=== PATIENT | female | born 1980 | race Asian ===

== ENCOUNTER 2019-11-03 02:15 | Emergency (ER) | payer OTHER ==
[2019-11-03 03:06] VITALS: TEMP 97.9; BMI 23.4
[2019-11-03] MEDS ORDERED: SODIUM CHLORIDE 0.9% 500 ML INFUS.BAG IV ONE ×2 (03:28→05:22)
[2019-11-03 04:45] LABS: ALBUMIN 3.6 g/dl (3.4-5.0); BILIRUBIN,TOTAL 0.4 mg/dL (0.2-1); BLOOD UREA NITROGEN 10.6 mg/dL (7-18); CALCIUM 8.9 mg/dL (8.5-10.1); CREATININE 0.7 mg/dL (0.55-1.3); MAGNESIUM 2.1 mg/dL (1.8-2.4); POTASSIUM 4.4 mmol/L (3.5-5.1); TOT PROT 7.1 g/dl (6.4-8.2)
--- NOTE | 2019-11-03 04:53 | PDOC ---
History of Present Illness - General Chief Complaint: Palpitations Stated Complaint: PALPITATIONS Time Seen by Provider: 11/03/19 03:03 History Source: Patient, Family Exam Limitations: No Limitations - History of Present Illness Initial Comments: 11/03/19 04:47 [id number] without PMH who p/w one day of sensation of rapid palpitations unlike symptoms she has ever had before. Her family is present to assist translating and provide her history. They note that at about 1:45 am today, she began screaming and saying that she felt like she was going to because of the palpitations. Family note that when they tried to help console her, she seemed to become less responsive for a short period of time but never lost consciousness. They otherwise deny any f/c/n/v/d/c, change in appetite, cough, congestion, CP, AP, back pain, neck pain, change in baseline stress level, or any other new symptoms. Past History - Past Medical History Allergies/Adverse Reactions: Allergies Allergy/AdvReac Type Severity Reaction Status Date / Time No Known Allergies Allergy Verified 11/03/19 04:29 Home Medications: Ambulatory Orders Cephalexin [Keflex] 500 mg PO BID #13 capsule 11/03/19 COPD: No Other medical history: Pt denies - Psycho Social/Smoking Cessation Hx Smoking History: Never smoked Have you smoked in the past 12 months: No Information on smoking cessation initiated: No Hx Alcohol Use: No Drug/Substance Use Hx: No Review of Systems - Review of Systems Able to Perform ROS?: Yes Comments:: 11/03/19 04:53 GEN: no fever, chills, malaise, or generalized weakness HEENT: no ear pain, congestion, sore throat, vision change, or eye pain CV: palpitations, no chest pain, lightheadedness, syncope, or edema RESP: no SOB, wheezing, or cough GI: no abdominal pain, nausea, vomiting, diarrhea, constipation, or rectal bleed : no dysuria, hematuria, or discharge MSK: no muscle weakness or pain, no joint swelling or pain NEURO: no headache, vertigo, numbness, tingling, or focal weakness PSYCH: no SI, HI, or behavior change SKIN: no jaundice, rash, lesions, or unexplained bruises ROS otherwise negative except as noted in HPI *Physical Exam - Vital Signs Last Vital Signs Temp Pulse Resp BP Pulse Ox 97.9 F 89 16 107/75 97 11/03/19 02:40 11/03/19 06:07 11/03/19 06:07 11/03/19 06:07 11/03/19 06:07 - Physical Exam 11/03/19 04:54 GENERAL: a bit dehydrated appearing, but A/Ox4, no distress, answers questions appropriately, accompanied by and son who appear supportive HEENT: PERRLA, EOMI, moist mucous membranes NECK/BACK: no midline ttp, no spinal stepoff or deformity, no hematoma, full ROM , neck supple CARDIOVASCULAR: regular rate/rhythm, no MGR, strong peripheral pulses, capillary refill <2 seconds, extremities wwp, no edema LUNGS/RESPIRATORY: no respiratory distress, CTAB GI/ABDOMEN: symmetric [id number], normoactive BS, soft, no ttp, no midline pulsatile masses : no CVA tenderness EXTREMITIES: no muscle atrophy, no acute deformity SKIN: warm and dry, a bit pale, no jaundice, no rash, no bruising, no skin breakdown, no cuts, no lesions NEUROLOGICAL: GCS 15, CN II-XII grossly intact, 5/5 strength proximally and distally, no facial droop Heart Score/ECG Review #1 11/03/19 02:44 Sinus rhythm, rate 100, normal axis and intervals, TWF III, no other ST-T changes ED Treatment Course - LABORATORY CBC & Chemistry Diagram: 11/03/19 04:41 11/03/19 03:51 - ADDITIONAL ORDERS Additional order review: 11/03/19 11/03/19 11/03/19 04:41 03:56 03:51 RBC 3.95 Cancelled MCV 89.6 Cancelled MCHC 33.7 Cancelled RDW 12.4 Cancelled MPV 9.1 Cancelled Neutrophils % 59.7 Cancelled Lymphocytes % 30.1 Cancelled Monocytes % 7.8 Cancelled Eosinophils % 1.5 Cancelled Basophils % 0.9 Cancelled POC Glucometer 102 - RADIOLOGY Radiology Studies Ordered: Category Date Time Status CHEST X-RAY PORTABLE* [RAD] Stat Radiology 11/03/19 03:27 Completed - Medications Given in the ED: ED Medications Discontinued Medications Generic Name Dose Route Start Last Admin Trade Name Freq PRN Reason Stop Dose Admin Cephalexin HCl 500 mg 11/03/19 06:33 11/03/19 06:41 Keflex - PO 11/03/19 06:34 500 mg ONCE ONE Administration Sodium Chloride 1,000 ml 11/03/19 03:28 11/03/19 03:54 Normal Saline - IV 11/03/19 03:29 1,000 ml ONCE ONE Administration Sodium Chloride 1,000 ml 11/03/19 05:22 11/03/19 05:25 Normal Saline - IV 11/03/19 05:23 1,000 ml ONCE ONE Administration Medical Decision Making - Medical Decision Making 11/03/19 19:12 Adult female Pt p/w sensation of palpitations. Initial Vital Signs Temp Pulse Resp BP Pulse Ox 97.9 F 101 H 20 119/67 97 11/03/19 02:40 11/03/19 02:40 11/03/19 02:40 11/03/19 02:40 11/03/19 02:40 Exam: As noted in Physical Exam section. DDX IBNLT: tachyarrhythmia (e.g. SVT, re-entrant tachycardia, WPW, Brugada, long QT, AF/AFL w/ RVR, MAT, ventricular dysrhythmia), ischemia (ACS), structural heart condition (MVP, mitral stenosis, atrial enlargement, HOCM), anxiety/panic, hypoxia, anemia (e.g. hemorrhage from heavy menstruation, ruptured ectopic, etc), PE, PTX, bronchitis/PNA, sepsis/shock, tamponade, metabolic (e.g. DKA, hypoglycemia), thyroid condition, catecholamine surge ( e.g. pheochromocytoma), anxiety/panic disorder, medication effect, substance use , etc. W/U ordered: Labs EKG CXR Monitor TX ordered: IVF EKG: Reviewed; results as noted in ECG Review section. CXR: Nothing acute Laboratory Tests 11/03/19 11/03/19 11/03/19 03:51 03:51 03:51 WBC Cancelled Corrected WBC (auto) Cancelled RBC Cancelled Hgb Cancelled Hct Cancelled MCV Cancelled MCH Cancelled MCHC Cancelled RDW Cancelled Plt Count Cancelled MPV Cancelled Absolute Neuts (auto) Cancelled Absolute Lymphs (auto) Cancelled Absolute Monos (auto) Cancelled Absolute Eos (auto) Cancelled Absolute Basos (auto) Cancelled Add Manual Diff Cancelled Neutrophils % Cancelled Lymphocytes % Cancelled Monocytes % Cancelled Eosinophils % Cancelled Basophils % Cancelled Nucleated RBC % Cancelled Platelet Estimate Cancelled Platelet Comment Cancelled Normal RBC Morphology Cancelled Sodium 140 Potassium 4.4 Chloride 108 H Carbon Dioxide 23 Anion Gap 9 BUN 10.6 Creatinine 0.7 Est GFR (CKD-EPI)AfAm 128.28 Est GFR (CKD-EPI)NonAf 110.69 POC Glucometer Random Glucose 103 Calcium 8.9 Magnesium 2.1 Total Bilirubin 0.4 AST 31 ALT 27 Alkaline Phosphatase 73 Creatine Kinase 142 Troponin I < 0.02 Total Protein 7.1 Albumin 3.6 Urine Color Urine Appearance Urine pH Ur Specific [place] Urine Protein Urine Glucose (UA) Urine Ketones Urine Blood Urine Nitrite Urine Bilirubin Urine Urobilinogen Ur Leukocyte Esterase Urine WBC (Auto) Urine RBC (Auto) Urine Casts (Auto) U Epithel Cells (Auto) Urine Bacteria (Auto) Urine HCG, Qual 11/03/19 11/03/19 11/03/19 03:56 04:41 05:28 WBC 8.9 Corrected WBC (auto) RBC 3.95 Hgb 11.9 Hct 35.4 MCV 89.6 MCH 30.2 MCHC 33.7 RDW 12.4 Plt Count 243 MPV 9.1 Absolute Neuts (auto) 5.3 Absolute Lymphs (auto) Absolute Monos (auto) Absolute Eos (auto) Absolute Basos (auto) Add Manual Diff Neutrophils % 59.7 Lymphocytes % 30.1 Monocytes % 7.8 Eosinophils % 1.5 Basophils % 0.9 Nucleated RBC % 0 Platelet Estimate Platelet Comment Normal RBC Morphology Sodium Potassium Chloride Carbon Dioxide Anion Gap BUN Creatinine Est GFR (CKD-EPI)AfAm Est GFR (CKD-EPI)NonAf POC Glucometer 102 Random Glucose Calcium Magnesium Total Bilirubin AST ALT Alkaline Phosphatase Creatine Kinase Troponin I Total Protein Albumin Urine Color Yellow Urine Appearance Clear Urine pH 5.5 Ur Specific [place] 1.008 L Urine Protein Negative Urine Glucose (UA) Negative Urine Ketones Negative Urine Blood Negative Urine Nitrite Negative Urine Bilirubin Negative Urine Urobilinogen 0.2 Ur Leukocyte Esterase 2+ H Urine WBC (Auto) 40 Urine RBC (Auto) 2 Urine Casts (Auto) 1 U Epithel Cells (Auto) 1.8 Urine Bacteria (Auto) 203.2 Urine HCG, Qual 11/03/19 05:28 WBC Corrected WBC (auto) RBC Hgb Hct MCV MCH MCHC RDW Plt Count MPV Absolute Neuts (auto) Absolute Lymphs (auto) Absolute Monos (auto) Absolute Eos (auto) Absolute Basos (auto) Add Manual Diff Neutrophils % Lymphocytes % Monocytes % Eosinophils % Basophils % Nucleated RBC % Platelet Estimate Platelet Comment Normal RBC Morphology Sodium Potassium Chloride Carbon Dioxide Anion Gap BUN Creatinine Est GFR (CKD-EPI)AfAm Est GFR (CKD-EPI)NonAf POC Glucometer Random Glucose Calcium Magnesium Total Bilirubin AST ALT Alkaline Phosphatase Creatine Kinase Troponin I Total Protein Albumin Urine Color Urine Appearance Urine pH Ur Specific [place] Urine Protein Urine Glucose (UA) Urine Ketones Urine Blood Urine Nitrite Urine Bilirubin Urine Urobilinogen Ur Leukocyte Esterase Urine WBC (Auto) Urine RBC (Auto) Urine Casts (Auto) U Epithel Cells (Auto) Urine Bacteria (Auto) Urine HCG, Qual Negative DISCHARGE The Pt has gotten significant relief of symptoms while in the ED. She does not have EKG or other workup findings concerning for life-threatening arrhythmia. The Pt is comfortable with this plan and will follow up with her primary care provider in 1-3 days. She will take OTC pain medications, pyridium, etc. for pain. E-Rx has been sent to her pharmacy for Keflex course, first dose given in the ED. Specific return precautions are discussed and she will come back to the ED if necessary. Discharge - Discharge Information Problems reviewed: Yes Clinical Impression/Diagnosis: UTI (urinary tract infection) Qualifiers: Urinary tract infection type: acute cystitis Hematuria presence: without hematuria Qualified Code(s): N30.00 - Acute cystitis without hematuria Condition: Stable Disposition: HOME - Admission No - Additional Discharge Information Prescriptions: Cephalexin [Keflex] 500 mg PO BID #13 capsule - Follow up/Referral Referrals: Bradly Tavares MD [Primary Care Provider] - - Patient Discharge Instructions Additional Instructions: You were seen in the ER for a report of palpitations. We did blood and urine labs and you have a urinary tract infection, but there were no other abnormalities. We gave you a dose of medication here in the ER and sent the remaining prescription to your pharmacy. hide house supervisor and take your prescriptions that we are sending electronically to your pharmacy. Drink plenty of fluids over the next several days. Follow up with your primary doctor in 1-3 days. Call their clinic [facility], tell them you were seen in the ER, and tell them you need an appointment. Please come back to the ER at any time, 24 hours a day, for any new or worsening symptoms, like worsened pain, increased or foul- smelling discharge, fever, genital pain or swelling, or other symptoms. If you are having severe or life threatening symptoms, or symptoms that make it unsafe to drive or have someone drive you, please call 911. - Post Discharge Activity
[2019-11-03 04:56] LABS: BASO % 0.9 % (0-2.0); EOS % 1.5 % (0-4.5); HEMATOCRIT 35.4 % (32.4-45.2); HEMOGLOBIN 11.9 GM/dL (10.7-15.3); LYMPH % 30.1 % (8-40); MCH 30.2 pg (25.7-33.7); MCHC 33.7 g/dl (32.0-36.0); MEAN CELL VOLUME 89.6 fl (80-96); MEAN PLT VOLUME 9.1 fl (7.5-11.1); MONO % 7.8 % (3.8-10.2); NEUT % 59.7 % (42.8-82.8); PLATELET COUNT 243 K/MM3 (134-434); RBC 3.95 M/mm3 (3.60-5.2); RDW 12.4 % (11.6-15.6); WHITE BLOOD COUNT 8.9 K/mm3 (4.0-10.0)
[2019-11-03 06:04] LABS: EPI CELLS 1.8 /HPF (0-5/HPF); HYALINE CASTS 1 /lpf (0-8); PH,URINE 5.5 (5.0-8.0); URINE APPEARANCE CLEAR; URINE BACTERIA 203.2 /hpf (NEGATIVE); URINE BILIRUBIN NEGATIVE (NEGATIVE); URINE COLOR YELLOW; URINE GLUCOSE (UA) NEGATIVE (NEGATIVE); URINE KETONE NEGATIVE (NEGATIVE); URINE LEUK ESTERASE 2+ (NEGATIVE); URINE NITRITE NEGATIVE (NEGATIVE); URINE PROTEIN NEGATIVE (NEGATIVE); URINE RBC 2 /hpf (0-4); URINE UROBILINOGEN 0.2 mg/dL (0.2-1.0); URINE WBC 40 /hpf (0-5)
[2019-11-03 06:08] VITALS: BP 107/75; PULSE 89
[2019-11-03] MEDS ORDERED: CEPHALEXIN MONOHYDRATE 500 MG CAPSULE (UD) PO ONE (06:33)
[2019-11-03] MEDS ORDERED: CEPHALEXIN MONOHYDRATE 500 MG CAPSULE (UD) ONE (06:38)
--- NOTE | 2019-11-03 17:00 | EKG ---
Test Reason : Blood Pressure : / mmHG Vent. Rate : 100 BPM Atrial Rate : 100 BPM P-R Int : 130 ms QRS Dur : 072 ms QT Int : 332 ms P-R-T Axes : 051 043 044 degrees QTc Int : 428 ms NORMAL SINUS RHYTHM NORMAL ECG NO PREVIOUS ECGS AVAILABLE Confirmed by JOSÉ DE MD ([id number]) on 11/03/2019 5:00:15 PM Referred By: Confirmed By:JOSÉ DE MD
== END 2019-11-03 06:53 | disposition home or self-care (01) ==
LOC: JER 02:15
DX: N39.0 Urinary tract infection, site not specified (principal)
CPT/HCPCS: 36415; 71045-TC-FY; 80053; 81003; 82550; 82962; 83735; 84484; 84703; 85025; 87086; 93005; 93010; 99284-25